=== PATIENT | male | born 1965 | race Hispanic/Latino ===

== ENCOUNTER 2020-12-22 11:08 | Emergency (ER) | payer MEDICARE ==
[2020-12-22] MEDS ORDERED: ZIPRASIDONE MESYLATE 20 MG VIAL IM ONE ×2 (11:10→11:38)
[2020-12-22] MEDS ORDERED: WATER FOR INJ Sterile (PF) 10 ML ONE (11:10)
[2020-12-22 11:43] VITALS: BP 117/65
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
== END 2020-12-22 13:57 | disposition home or self-care (01) ==
LOC: ED 11:08
DX: S00.531A Contusion of lip, initial encounter (principal); S09.90XA Unspecified injury of head, initial encounter; R41.82 Altered mental status, unspecified; Y08.89XA Assault by other specified means, initial encounter; Y93.89 Activity, other specified; Y92.098 Other place in other non-institutional residence as the place of occurrence of the external cause; Y99.8 Other external cause status
CPT/HCPCS: 70450; 96372; 99284; J3486

== ENCOUNTER 2022-02-22 10:15 | Emergency (ER) | payer MEDICARE ==
[2022-02-22 10:24] VITALS: BP 115/44
[2022-02-22 11:56] LABS: Basophils % (Auto) 0.2 % (0.0-1.8); Eosinophils # (Auto) 0.1 K/mm3 (0.0-0.4); Eosinophils % (Auto) 1.1 % (0.0-4.3); Hematocrit 39.1 % (35.5-45.6); Hemoglobin 12.9 gm/dl (11.8-15.2); Lymphocytes # (Auto) 0.8 K/mm3 (1.2-5.4); Lymphocytes % (Auto) 7.1 % (13.4-35.0); Mean Corpuscular HGB Conc 33 % (32-34); Mean Corpuscular Volume 82 fl (84-94); Monocytes # (Auto) 0.8 K/mm3 (0.0-0.8); Monocytes % (Auto) 7.1 % (0.0-7.3); Platelet Count 275 K/mm3 (140-440); Red Blood Count 4.75 M/mm3 (3.65-5.03); Red Cell Distribution Width 15.5 % (13.2-15.2)
== END 2022-02-22 17:43 | disposition left against medical advice (07) ==
LOC: ED 10:15
DX: M79.89 Other specified soft tissue disorders (principal); Z53.21 Procedure and treatment not carried out due to patient leaving prior to being seen by health care provider
CPT/HCPCS: 36415; 80053; 85025

== ENCOUNTER 2022-02-24 09:13 | Inpatient (IN) | payer MEDICARE ==
[2022-02-24 10:00] LABS: Basophils % (Auto) 0.4 % (0.0-1.8); Eosinophils # (Auto) 0.2 K/mm3 (0.0-0.4); Hematocrit 35.1 % (35.5-45.6); Hemoglobin 11.8 gm/dl (11.8-15.2); Lymphocytes # (Auto) 1.1 K/mm3 (1.2-5.4); Lymphocytes % (Auto) 11.7 % (13.4-35.0); Mean Corpuscular HGB Conc 34 % (32-34); Mean Corpuscular Volume 81 fl (84-94); Monocytes % (Auto) 11.3 % (0.0-7.3); Platelet Count 277 K/mm3 (140-440); Red Blood Count 4.34 M/mm3 (3.65-5.03); Red Cell Distribution Width 15.3 % (13.2-15.2)
[2022-02-24 10:01] LABS: BUN/Creatinine Ratio 16; Blood Urea Nitrogen 16 mg/dL (9-20); Calcium 8.7 mg/dL (8.4-10.2); Hemolysis Index 2
[2022-02-24 10:10] LABS: INR 0.88 (0.87-1.13)
[2022-02-24] MEDS ORDERED: ENOXAPARIN 100 MG/1 ML INJ SUB-Q ONE (10:43)
[2022-02-24] MEDS ORDERED: HYDROcodone/ACETAMINOPHEN 5-325 MG TAB PO ONE (10:44)
--- NOTE | 2022-02-24 10:44 | Emergency Department Report ---
HPI - General Chief Complaint: Extremity Injury, Lower Time Seen by Provider: 02/24/22 09:48 - HPI HPI: Room 24 The patient is a 56-year-old male present with a chief complaint of left leg pain and swelling. The patient has a history of cerebral palsy, bipolar disorder and schizophrenia and subsequently is not reliable historian. Family is present at bedside and states they received a call [facility] 02[facility]/2022 stating that the patient's left leg was swollen. When asked when the swelling began the patient states he does not know. Patient complains of pain in the leg and gives it a score of 8/10 ED Past Medical Hx - Past Medical History Previous Medical History?: Yes Hx Deep Vein Thrombosis: Yes (maryam legs) Hx Psychiatric Treatment: Yes (bipolar/schizophrenia) Additional medical history: Cerebral palsy - Surgical History Past Surgical History?: No - Family History Family history: no significant - Social History Smoking Status: Never Smoker Substance Use Type: None ED Review of Systems ROS: Stated complaint: SWOLLEN LEFT LEG Other details as noted in HPI Comment: Unobtainable due to pts medical conditions Physical Exam - Physical Exam Vital Signs: Vital Signs 02/24/22 09:18 Temperature 98.7 F Pulse Rate 104 H Respiratory 18 Rate Blood Pressure 145/85 [Right] O2 Sat by Pulse 96 Oximetry Physical Exam: GENERAL: The patient is well-nourished male lying on stretcher not appearing to be in acute distress HEENT: Normocephalic. Atraumatic. Extraocular motions are intact. Patient has moist mucous membranes. NECK: Supple. Trachea midline CHEST/LUNGS: Clear to auscultation. There is no respiratory distress noted. HEART/CARDIOVASCULAR: Regular. There is no tachycardia. There is no gallop rub or murmur. 2+ left DP ABDOMEN: Abdomen is soft, nontender. Patient has normal bowel sounds. There is no abdominal distention. SKIN: There is no rash. There is marked edema of the left lower extremity. There is no diaphoresis. NEURO: The patient is awake and alert. The patient is cooperative. The patient has no focal neurologic deficits. The patient has normal speech. GCS 15 MUSCULOSKELETAL: There is tenderness to palpation of the left lower extremity. ED Course Vital Signs 02/24/22 09:18 Temperature 98.7 F Pulse Rate 104 H Respiratory 18 Rate Blood Pressure 145/85 [Right] O2 Sat by Pulse 96 Oximetry ED Medical Decision Making - Lab Data Result diagrams: 02/24/22 09:26 02/24/22 09:26 - Radiology Data Radiology results: report reviewed (Left lower extremity Doppler), image reviewed (Left lower extremity Doppler) [facility] [address] [place] [address] Vascular Lab Report Signed Patient: DEE DEE CASTILLO MR#: [id number] : 1965 Acct:[id number] Age/Sex: 56 / M ADM Date: 02/24/22 Loc: ED Attending Dr: Ordering Physician: KIMBERLEY GRAY NP Date of Service: 02/24/22 Procedure(s): VL venous duplex LE LT Accession Number(s): [id number] cc: KIMBERLEY GRAY NP DUPLEX DOPPLER LOWER EXTREMITY VEINS, LEFT INDICATION: left leg swelling with hx of maryam DVT. TECHNIQUE: Duplex doppler imaging was performed through the veins of the left lower extremity using venous compression and other maneuvers. COMPARISON: No relevant prior imaging study available. FINDINGS: Left Common femoral vein: Occlusive thrombus. Left Superficial femoral vein: Occlusive thrombus. Left Popliteal vein: Occlusive thrombus. Left Calf veins: Occlusive thrombus. Additional findings: None.. IMPRESSION: 1. Extensive DVT throughout the left or extremity as above. The findings were given to the ER physician by the industrial relations manager immediately after the exam. Signer Name: Jed Ordaz MD Signed: 02/24/2022 11:10 AM Workstation Name: [id number] Transcribed By: Dictated By: Jed Ordaz MD Electronically Authenticated By: Jed Ordaz MD Signed Date/Time: 02/24/22 1110 DD/ 1109 TD/TT: - Differential Diagnosis DVT, lymphedema Critical care attestation.: If time is entered above; I have spent that time in minutes in the direct care of this critically ill patient, excluding procedure time. ED Disposition Clinical Impression: Acute deep vein thrombosis of left lower extremity Disposition: ADMITTED INPATIENT Is pt being admited?: Yes Does the pt Need Aspirin: No Condition: Fair Time of Disposition: 11:31 (Care transferred to hospitalist (Dr. Dash))
[2022-02-24] MEDS ORDERED: ONDANSETRON 4 MG/2 ML INJ IV PRN ×2 (11:10→19:45)
[2022-02-24] MEDS ORDERED: MORPHINE 2 MG/1 ML INJ IV PRN (11:10)
[2022-02-24] MEDS ORDERED: ACETAMINOPHEN 325 MG TAB PO PRN ×2 (11:10→19:45)
--- NOTE | 2022-02-24 11:15 | Vascular Lab Report ---
DUPLEX DOPPLER LOWER EXTREMITY VEINS, LEFT INDICATION: left leg swelling with hx of maryam DVT. TECHNIQUE: Duplex doppler imaging was performed through the veins of the left lower extremity using venous compr ession and other maneuvers. COMPARISON: No relevant prior imaging study available. FINDINGS: Left Common femoral vein: Occlusive thrombus. Left Superficial femoral vein: Occlusive thrombus. Left Popliteal vein: Occlusive thrombus. Left Calf veins: Occlusive thrombus. Additional findings: None.. IMPRESSION: 1. Extensive DVT throughout the left or extremity as above. The findings were given to the ER physici an by the loan analyst immediately after the exam. Signer Name: Jed Ordaz MD Signed: 02/24/2022 11:10 AM Workstation Name: [id number]
[2022-02-24 13:23] LABS: Partial Thromboplastin Time 33.5 Sec. (24.2-36.6)
[2022-02-24] MEDS ORDERED: METOCLOPRAMIDE 10 MG/2 ML INJ IV PRN (19:45)
[2022-02-24] MEDS ORDERED: SODIUM CHLORIDE 0.9% 1000 ML 1,000 ML IV SCH (19:45)
--- NOTE | 2022-02-24 19:45 | History and Physical Report ---
History of Present Illness Date of examination: 02/24/22 Date of admission: 02/24/22 11:10 Chief complaint: Left leg swelling and pain for 2 days History of present illness: The patient is a 56-year-old male present with a chief complaint of left leg pain and swelling. The patient has a history of cerebral palsy, bipolar disorder and schizophrenia and subsequently is not reliable historian. Family is present at bedside and states they received a call [facility]'s [facility] 02/21/2022 stating that the patient's left leg was swollen. When asked when the swelling began the patient states he does not know. Patient complains of pain in the leg and gives it a score of 8/10 - Past Medical History Previous Medical History?: Yes Hx Deep Vein Thrombosis: Yes (maryam legs) Hx Psychiatric Treatment: Yes (bipolar/schizophrenia) Additional medical history: Cerebral palsy - Surgical History Past Surgical History?: No - Family History Family history: no significant - Social History Smoking Status: Never Smoker Substance Use Type: None Review of Systems ROS: Stated complaint: SWOLLEN LEFT LEG Other details as noted in HPI Comment: Unobtainable due to pts medical conditions Medications and Allergies Allergies Allergy/AdvReac Type Severity Reaction Status Date / Time Penicillins Allergy Unknown Verified 02/22/22 10:24 Home Medications Medication Instructions Recorded Confirmed Last Taken Type levoFLOXacin [Levaquin] 750 mg PO QDAY #14 tablet 02/24/22 Unknown Rx Active Meds: Active Medications Acetaminophen (Acetaminophen 325 Mg Tab) 650 mg PO Q4H PRN PRN Reason: Pain MILD(1-3)/Fever >100.5/SMITH Morphine Sulfate (Morphine 2 Mg/1 Ml Inj) 2 mg IV Q4H PRN PRN Reason: Pain, Moderate (4-6) Ondansetron HCl (Ondansetron 4 Mg/2 Ml Inj) 4 mg IV Q8H PRN PRN Reason: Nausea And Vomiting Sodium Chloride (Sodium Chloride 0.9% 10 Ml Flush Syringe) 10 ml IV BID LUPE Sodium Chloride (Sodium Chloride 0.9% 10 Ml Flush Syringe) 10 ml IV PRN PRN PRN Reason: LINE FLUSH Exam - Constitutional Vitals: Temp Pulse Resp BP Pulse Ox 60 F L 77 18 129/65 99 02/24/22 11:30 02/24/22 17:05 02/24/22 17:05 02/24/22 17:05 02/24/22 17:05 General appearance: Present: no acute distress, well-nourished - EENT Eyes: Present: PERRL ENT: hearing intact, clear oral mucosa - Neck Neck: Present: supple, normal ROM - Respiratory Respiratory effort: normal Respiratory: bilateral: CTA - Cardiovascular Heart rate: 78 Rhythm: regular Heart Sounds: Present: S1 & S2. Absent: rub, click - Extremities Extremities: pulses symmetrical, No edema Extremity abnormal: edema (Left lower extremity), erythema (Left lower extremity erythema below knee joint up to the ankle) Peripheral Pulses: within normal limits - Abdominal General gastrointestinal: Present: soft, non-tender, non-distended, normal bowel sounds Male genitourinary: Present: normal - Integumentary Integumentary: Present: clear, warm, dry - Musculoskeletal Musculoskeletal: gait normal, strength equal bilaterally - Psychiatric Psychiatric: appropriate mood/affect, intact judgment & insight - Neurologic Neurologic: CNII-XII intact, moves all extremities Results - Labs CBC & Chem 7: 02/25/22 04:46 02/25/22 04:46 Labs: Laboratory Last Values WBC 9.2 K/mm3 (4.5-11.0) 02/24/22 09: RBC 4.34 M/mm3 (3.65-5.03) 02/24/22 09: Hgb 11.8 gm/dl (11.8-15.2) 02/24/22 09: Hct 35.1 % (35.5-45.6) L 02/24/22 09: MCV 81 fl (84-94) L 02/24/22 09:26 MCH 27 pg (28-32) L 02/24/22 09:26 MCHC 34 % (32-34) 02/24/22 09: RDW 15.3 % (13.2-15.2) H 02/24/22 09:26 Plt Count 277 K/mm3 (140-440) 02/24/22 09:26 Lymph % (Auto) 11.7 % (13.4-35.0) L 02/24/22 09: [place] % (Auto) 11.3 % (0.0-7.3) H 02/24/22 09: Eos % (Auto) 2.0 % (0.0-4.3) 02/24/22 09: Baso % (Auto) 0.4 % (0.0-1.8) 02/24/22 09: Lymph # (Auto) 1.1 K/mm3 (1.2-5.4) L 02/24/22 09:26 [place] # (Auto) 1.0 K/mm3 (0.0-0.8) H 02/24/22 09:26 Eos # (Auto) 0.2 K/mm3 (0.0-0.4) 02/24/22 09: Baso # (Auto) 0.0 K/mm3 (0.0-0.1) 02/24/22 09: Seg Neutrophils % 74.6 % (40.0-70.0) H 02/24/22 09: Seg Neutrophils # 6.9 K/mm3 (1.8-7.7) 02/24/22 09: PT 13.1 Sec. (12.2-14.9) 02/24/22 09: INR 0.88 (0.87-1.13) 02/24/22 09: APTT 33.5 Sec. (24.2-36.6) 02/24/22 09:26 Sodium 138 mmol/L (137-145) 02/24/22 09: Potassium 3.9 mmol/L (3.6-5.0) 02/24/22 09: Chloride 100.8 mmol/L (98-107) 02/24/22 09: Carbon Dioxide 24 mmol/L (22-30) 02/24/22 09: Anion Gap 17 mmol/L 02/24/22 09:26 BUN 16 mg/dL (9-20) 02/24/22 09: Creatinine 1.0 mg/dL (0.8-1.3) 02/24/22 09: Estimated GFR > 60 ml/min 02/24/22 09: BUN/Creatinine Ratio 16 % 02/24/22 09:26 Glucose 131 mg/dL (75-100) H 02/24/22 09: Calcium 8.7 mg/dL (8.4-10.2) 02/24/22 09:26 - Imaging and Cardiology Imaging and Cardiology: Duplex scan left lower extremity Extensive DVT throughout the left lower extremity. Left common femoral vein occlusive thrombus Left superficial femoral vein occlusive thrombus Left popliteal vein occlusive thrombus Left calf by occlusive thrombus Assessment and Plan Advance Directives: Yes (Full code) VTE prophylaxis?: Chemical Plan of care discussed with patient/family: Yes - Patient Problems (1) Acute deep vein thrombosis of left lower extremity Current Visit: Yes Status: Acute Qualifiers: Affected thrombotic vein of extremity: femoral Qualified Code(s): I82.412 - Acute embolism and thrombosis of left femoral vein Plan to address problem: Extensive DVT of left lower extremity Patient initiated on SQ Lovenox 100 mg every 12 Will switch to Eliquis tomorrow or day after Vascular surgery/IR consult requested (2) Left leg cellulitis Current Visit: Yes Status: Acute Plan to address problem: IV antibiotic in the form of Levaquin and vancomycin Patient is allergic to penicillin (3) Cerebral palsy Current Visit: Yes Status: Chronic Plan to address problem: Mild to moderate Supportive care (4) Bipolar disorder Current Visit: Yes Status: Chronic Qualifiers: Active/Remission status: in full remission Plan to address problem: Continue antipsychotics (5) DVT prophylaxis Current Visit: Yes Status: Acute Plan to address problem: Patient on Lovenox SQ every 12 and GI prophylaxis (6) Advance care planning Current Visit: Yes Status: Acute Plan to address problem: Disease education conducted, care plan discussed, diagnosis and prognosis discussed. Patient is full code. Patient acknowledged understanding with the c are plan. +30 minutes.
[2022-02-24] MEDS ORDERED: VANCOMYCIN PHARMACY TO DOSE IV SCH (20:00)
[2022-02-24] MEDS ORDERED: AMPICILLIN/SULBACTA 3GM/100ML 3 GM/100 ML BAG IV SCH (20:00)
[2022-02-24] MEDS: oxyCODONE /ACETAMINOPHEN 5-325MG TAB PO PRN (20:50)
[2022-02-24] MEDS ORDERED: VANCOMYCIN 2,000 MG in SODIUM CHLORIDE 0.9% 500 ML 500 ML IV ONE (22:00)
[2022-02-24] MEDS: ENOXAPARIN 100 MG/1 ML INJ SUB-Q SCH (23:01)
[2022-02-24] MEDS: FAMOTIDINE 20 MG TAB PO SCH (23:01)
[2022-02-25 05:18] LABS: Basophils % (Auto) 0.4 % (0.0-1.8); Eosinophils # (Auto) 0.3 K/mm3 (0.0-0.4); Eosinophils % (Auto) 4.4 % (0.0-4.3); Hemoglobin 10.5 gm/dl (11.8-15.2); Lymphocytes # (Auto) 1.2 K/mm3 (1.2-5.4); Lymphocytes % (Auto) 18.9 % (13.4-35.0); Mean Corpuscular HGB Conc 33 % (32-34); Mean Corpuscular Volume 82 fl (84-94); Monocytes # (Auto) 0.7 K/mm3 (0.0-0.8); Monocytes % (Auto) 11.5 % (0.0-7.3); Platelet Count 244 K/mm3 (140-440); Red Cell Distribution Width 15.4 % (13.2-15.2)
[2022-02-25 05:41] LABS: Alanine Aminotransferase 17 units/L (7-56); Albumin 3.2 g/dL (3.9-5); BUN/Creatinine Ratio 18; Blood Urea Nitrogen 14 mg/dL (9-20); Calcium 8.3 mg/dL (8.4-10.2); Hemolysis Index 0
[2022-02-25] MEDS: FAMOTIDINE 20 MG TAB PO SCH (09:18)
[2022-02-25] MEDS: ENOXAPARIN 100 MG/1 ML INJ SUB-Q SCH (09:18)
[2022-02-25] MEDS: VANCOMYCIN 1,500 MG in SODIUM CHLORIDE 0.9% 500 ML 500 ML IV SCH (12:49)
--- NOTE | 2022-02-25 16:30 | Consultation ---
History of Present Illness - Reason for Consult Consult date: 02/25/22 LLE DVT Requesting physician: JORGE BELL - History of Present Illness 56-year-old male present with a chief complaint of left leg pain and swelling. The patient has a history of cerebral palsy, bipolar disorder and schizophrenia and subsequently is not reliable historian. The patient developed swelling on 02/21/2022 stating that the patient's left leg was swollen. When asked when the swelling began the patient states he does not know. Patient complains of pain in the leg and gives it a score of 8/10 Discussed situation with patient. Patient has 3-4+ edema of the left lower extremity and this is with elevated positioning. His right lower extremity has no edema. He has palpable pedal pulses bilaterally. Patient is a poor historian. Contacted patient's mother and I discussed situation with her. Previous Medical History Hx Deep Vein Thrombosis: Yes (maryam legs) Hx Psychiatric Treatment: Yes (bipolar/schizophrenia) Additional medical history: Cerebral palsy Surgical History Past Surgical History?: No Family History Family history: no significant Social History Smoking Status: Never Smoker Substance Use Type: None Medications and Allergies Allergies Allergy/AdvReac Type Severity Reaction Status Date / Time Penicillins Allergy Unknown Verified 02/22/22 10:24 Home Medications Medication Instructions Recorded Confirmed Last Taken Type levoFLOXacin [Levaquin] 750 mg PO QDAY #14 tablet 02/24/22 Unknown Rx Divalproex ER [DepaKOTE ER] 250 mg PO QHS 02/25/22 02/25/22 Unknown History Trazodone HCl 150 mg PO QHS 02/25/22 02/25/22 Unknown History risperiDONE [RisperDAL] 3 mg PO BID 02/25/22 02/25/22 Unknown History Active Meds: Active Medications Acetaminophen (Acetaminophen 325 Mg Tab) 650 mg PO Q4H PRN PRN Reason: Pain MILD(1-3)/Fever >100.5/SMITH Enoxaparin Sodium (Enoxaparin 100 Mg/1 Ml Inj) 100 mg SUB-Q Q12HR LUPE; Protocol Last Admin: 02/25/22 09:18 Dose: 100 mg Famotidine (Famotidine 20 Mg Tab) 20 mg PO BID LUPE Last Admin: 02/25/22 09:18 Dose: 20 mg Sodium Chloride (Nacl 0.9% 1000 Ml) 1,000 mls @ 75 mls/hr IV DIRECT [facility] Last Admin: 02/24/22 20:34 Dose: 75 mls/hr Vancomycin HCl 1,500 mg/ (Sodium Chloride) 530 mls @ 333.333 mls/hr IV Q12H [facility] Last Admin: 02/25/22 12:49 Dose: 333.333 mls/hr Levofloxacin/Dextrose (Levaquin 750mg/150ml) 750 mg in 150 mls @ 100 mls/hr IV Q24H [facility] Last Admin: 02/24/22 20:35 Dose: 100 mls/hr Metoclopramide HCl (Metoclopramide 10 Mg/2 Ml Inj) 10 mg IV Q6H PRN PRN Reason: Nausea And Vomiting Morphine Sulfate (Morphine 2 Mg/1 Ml Inj) 2 mg IV Q4H PRN PRN Reason: Pain, Moderate (4-6) Ondansetron HCl (Ondansetron 4 Mg/2 Ml Inj) 4 mg IV Q8H PRN PRN Reason: Nausea And Vomiting Oxycodone/Acetaminophen (Oxycodone /Acetaminophen 5-325mg Tab) 1 tab PO Q6H PRN PRN Reason: Pain, Moderate (4-6) Last Admin: 02/24/22 20:50 Dose: 1 tab Sodium Chloride (Sodium Chloride 0.9% 10 Ml Flush Syringe) 10 ml IV BID [facility] Last Admin: 02/25/22 09:18 Dose: 10 ml Sodium Chloride (Sodium Chloride 0.9% 10 Ml Flush Syringe) 10 ml IV PRN PRN PRN Reason: LINE FLUSH Review of Systems ROS unobtainable: due to mental status Exam - Constitutional Vitals: Temp Pulse Resp BP Pulse Ox 97.5 F L 92 H 18 141/77 98 02/24/22 19:57 02/24/22 19:57 02/24/22 19:57 02/24/22 19:57 02/25/22 10:35 General appearance: Present: mild distress (Left leg discomfort) - EENT Eyes: Present: EOM intact ENT: hearing intact - Neck Neck: Present: supple - Respiratory Respiratory effort: normal - Cardiovascular Rhythm: regular - Extremities Extremities: pulses intact, normal temperature, normal color Extremity abnormal: edema (3-4+ left lower extremity) - Abdominal General gastrointestinal: Present: soft, non-tender - Psychiatric Psychiatric: appropriate mood/affect, cooperative Results - Labs CBC & Chem 7: 02/25/22 04:46 02/25/22 04:46 Labs: Abnormal lab results 02/25/22 02/25/22 Range/Units 04:46 04:46 Hgb 10.5 L (11.8-15.2) gm/dl Hct 32.0 L (35.5-45.6) % MCV 82 L (84-94) fl MCH 27 L (28-32) pg RDW 15.4 H (13.2-15.2) % [place] % (Auto) 11.5 H (0.0-7.3) % Eos % (Auto) 4.4 H (0.0-4.3) % Calcium 8.3 L (8.4-10.2) mg/dL Total Protein 5.7 L (6.3-8.2) g/dL Albumin 3.2 L (3.9-5) g/dL - Imaging and Cardiology Venous US: report reviewed, image reviewed Assessment and Plan 56-year-old male with cerebral palsy, schizophrenia, and bipolar disorder who presents with extensive left lower extremity DVT. Discussed situation with mother. 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 Explained that treatment would involve placement of an IVC filter and subsequent Clottriever thrombectomy of the left lower extremity with angioplasty and possible stenting. I had a long discussion with the mother who seems to be unsure what the right decision for her son would be. Complicated decision-making as the patient provides little input. Patient's mother asked me to contact her again in 30 minutes. After 30 minutes, she discussed with family that she thought her son would benefit from oral anticoagulation alone. The reason why was he previously had psychiatric exacerbations in the hospital. Recommend Eliquis 10 mg p.o. twice daily x7 days then Eliquis 5 mg p.o. twice daily afterwards. If Eliquis not on patient's pharmacy plan, then Xarelto can be used.
[2022-02-25] MEDS: oxyCODONE /ACETAMINOPHEN 5-325MG TAB PO PRN (17:03)
--- NOTE | 2022-02-25 17:30 | Discharge Summary ---
Providers - Providers Date of Admission: 02/24/22 11:10 Date of discharge: 02/26/22 Attending physician: JORGE BELL 02/24/22 19:56 Consult to Physician [CONS] Routine Comment: Consulting Provider: DEE DEE BELL Physician Instructions: Reason For Exam: DVT Primary care physician: MARAL RODRIGUEZ Hospitalization Condition: Fair Hospital course: Subjective Date of service: 02/25/22 Principal diagnosis: Left lower extremity DVT and cellulitis Interval history: Patient admitted for left lower extremity DVT and cellulitis Patient doing well on Lovenox subcu 100 mg every 12 and IV antibiotics in the form of Levaquin vascular surgery/IR consulted for removal of the clot Mother refused removal floor in spite of the complications associated with extensive clot 02/25/2022 correction is accepted the patient Patient being discharged on Eliquis 10 mg twice a day for 7 days followed by Eliquis 5 mg twice a day for 30 days with refills Patient also being discharged on Levaquin for mild to moderate cellulitis of the left lower extremity. Case management arrange for transportation. Assessment and Plan - Patient Problems (1) Acute deep vein thrombosis of left lower extremity Current Visit: Yes Status: Acute Qualifiers: Affected thrombotic vein of extremity: femoral Qualified Code(s): I82.412 - Acute embolism and thrombosis of left femoral vein Plan to address problem: Extensive DVT of left lower extremity Patient initiated on SQ Lovenox 100 mg every 12 Will switch to Eliquis tomorrow or day after Vascular surgery/IR consult requested per interventional radiology 56-year-old male with cerebral palsy, schizophrenia, and bipolar disorder who presents with extensive left lower extremity DVT. Discussed situation with mother. 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 Explained that treatment would involve placement of an IVC filter and subsequent Clottriever thrombectomy of the left lower extremity with angioplasty and possible stenting. I had a long discussion with the mother who seems to be unsure what the right decision for her son would be. Complicated decision-making as the patient provides little input. Patient's mother asked me to contact her again in 30 minutes. After 30 minutes, she discussed with family that she thought her son would benefit from oral anticoagulation alone. The reason why was he previously had psychiatric exacerbations in the hospital. Recommend Eliquis 10 mg p.o. twice daily x7 days then Eliquis 5 mg p.o. twice daily afterwards. If Eliquis not on patient's pharmacy plan, then Xarelto can be used. (2) Left leg cellulitis Current Visit: Yes Status: Acute Plan to address problem: IV antibiotic in the form of Levaquin and vancomycin Patient is allergic to penicillin (3) Cerebral palsy Current Visit: Yes Status: Chronic Plan to address problem: Mild to moderate Supportive care (4) Bipolar disorder Current Visit: Yes Status: Chronic Qualifiers: Active/Remission status: in full remission Plan to address problem: Continue antipsychotics (5) DVT prophylaxis Current Visit: Yes Status: Acute Plan to address problem: Patient on Lovenox SQ every 12 and GI prophylaxis (6) Advance care planning Current Visit: Yes Status: Acute Plan to address problem: Disease education conducted, care plan discussed, diagnosis and prognosis discussed. Patient is full code. Patient acknowledged understanding with the care plan. +30 minutes. Disposition: HOME / SELF CARE / HOMELESS Final Discharge Diagnosis (Prints w/discharge instructions): Left lower extremity DVT. Cellulitis of the left lower extremity. Cerebral palsy Time spent for discharge: 35 minutes - Discharge Diagnoses (1) Acute deep vein thrombosis of left lower extremity Status: Acute Qualifiers: Affected thrombotic vein of extremity: femoral Qualified Code(s): I82.412 - Acute embolism and thrombosis of left femoral vein (2) Left leg cellulitis Status: Acute (3) Cerebral palsy Status: Chronic (4) Bipolar disorder Status: Chronic Qualifiers: Active/Remission status: in full remission (5) DVT prophylaxis Status: Acute (6) Advance care planning Status: Acute Core Measure Documentation - Palliative Care Palliative Care/ Comfort Measures: Not Applicable - Core Measures Any of the following diagnoses?: none Exam - Constitutional Vitals: Temp Pulse Resp BP Pulse Ox 97.5 F L 92 H 18 141/77 98 02/24/22 19:57 02/24/22 19:57 02/24/22 19:57 02/24/22 19:57 02/25/22 10:35 General appearance: Present: no acute distress, well-nourished - EENT Eyes: Present: PERRL ENT: hearing intact, clear oral mucosa - Neck Neck: Present: supple, normal ROM - Respiratory Respiratory effort: normal Respiratory: bilateral: CTA - Cardiovascular Heart rate: 78 Rhythm: regular Heart Sounds: Present: S1 & S2. Absent: rub, click - Extremities Extremities: pulses symmetrical, No edema Peripheral Pulses: within normal limits - Abdominal General gastrointestinal: Present: soft, non-tender, non-distended, normal bowel sounds Male genitourinary: Present: normal - Integumentary Integumentary: Present: clear, warm, dry - Musculoskeletal Musculoskeletal: gait normal, strength equal bilaterally - Psychiatric Psychiatric: appropriate mood/affect, intact judgment & insight - Neurologic Neurologic: CNII-XII intact, moves all extremities Plan Follow up with: MARAL RODRIGUEZ MD [Primary Care Provider] - 7 Days DEE DEE LUIS MD [Staff Physician] - 7 Days Prescriptions: levoFLOXacin [Levaquin] 750 mg PO QDAY #14 tablet
--- NOTE | 2022-02-25 19:57 | Progress Note ---
Assessment and Plan - Patient Problems (1) Acute deep vein thrombosis of left lower extremity Current Visit: Yes Status: Acute Qualifiers: Affected thrombotic vein of extremity: femoral Qualified Code(s): I82.412 - Acute embolism and thrombosis of left femoral vein Plan to address problem: Extensive DVT of left lower extremity Patient initiated on SQ Lovenox 100 mg every 12 Will switch to Eliquis tomorrow or day after Vascular surgery/IR consult requested per interventional radiology 56-year-old male with cerebral palsy, schizophrenia, and bipolar disorder who presents with extensive left lower extremity DVT. Discussed situation with mother. 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 Explained that treatment would involve placement of an IVC filter and subsequent Clottriever thrombectomy of the left lower extremity with angioplasty and possible stenting. I had a long discussion with the mother who seems to be unsure what the right decision for her son would be. Complicated decision-making as the patient provides little input. Patient's mother asked me to contact her again in 30 minutes. After 30 minutes, she discussed with family that she thought her son would benefit from oral ant icoagulation alone. The reason why was he previously had psychiatric exacerbations in the hospital. Recommend Eliquis 10 mg p.o. twice daily x7 days then Eliquis 5 mg p.o. twice daily afterwards. If Eliquis not on patient's pharmacy plan, then Xarelto can be used. (2) Left leg cellulitis Current Visit: Yes Status: Acute Plan to address problem: IV antibiotic in the form of Levaquin and vancomycin Patient is allergic to penicillin (3) Cerebral palsy Current Visit: Yes Status: Chronic Plan to address problem: Mild to moderate Supportive care (4) Bipolar disorder Current Visit: Yes Status: Chronic Qualifiers: Active/Remission status: in full remission Plan to address problem: Continue antipsychotics (5) DVT prophylaxis Current Visit: Yes Status: Acute Plan to address problem: Patient on Lovenox SQ every 12 and GI prophylaxis (6) Advance care planning Current Visit: Yes Status: Acute Plan to address problem: Disease education conducted, care plan discussed, diagnosis and prognosis discussed. Patient is full code. Patient acknowledged understanding with the care plan. +30 minutes. Subjective Date of service: 02/24/22 Principal diagnosis: Left lower extremity DVT and cellulitis Interval history: Patient admitted for left lower extremity DVT and cellulitis Patient doing well on Lovenox subcu 100 mg every 12 and IV antibiotics in the form of Levaquin vascular surgery/IR consulted for removal of the clot Mother refused removal floor in spite of the complications associated with extensive clot Objective - Constitutional Vitals: Vital Signs - 12hr 02/25/22 02/25/22 10:35 18:14 Temperature 99.1 F Pulse Rate 89 Respiratory 18 Rate Blood Pressure 133/66 O2 Sat by Pulse 98 94 Oximetry General appearance: Present: no acute distress, well-nourished - EENT Eyes: PERRL, EOM intact ENT: hearing intact, clear oral mucosa Ears: bilateral: normal - Neck Neck: supple, normal ROM - Respiratory Respiratory effort: normal Respiratory: bilateral: CTA - Breasts Breasts: normal - Cardiovascular Heart rate: 78 Rhythm: regular Heart Sounds: Present: S1 & S2. Absent: gallop, rub Extremities: pulses intact, Full ROM Extremity abnormal: edema, erythema, tenderness, other (Left lower extremity swollen from the thigh to the ankle, erythema present on the left lower extremity below knee) - Gastrointestinal General gastrointestinal: Present: soft, non-tender, non-distended, normal bowel sounds - Genitourinary Male genitourinary: normal - Integumentary Integumentary: clear, warm, dry - Musculoskeletal Musculoskeletal: 1, strength equal bilaterally - Neurologic Neurologic: moves all extremities - Psychiatric Psychiatric: memory intact, appropriate mood/affect, intact judgment & insight - Labs CBC & Chem 7: 02/25/22 04:46 02/25/22 04:46 Labs: Abnormal lab results 02/25/22 02/25/22 Range/Units 04:46 04:46 Hgb 10.5 L (11.8-15.2) gm/dl Hct 32.0 L (35.5-45.6) % MCV 82 L (84-94) fl MCH 27 L (28-32) pg RDW 15.4 H (13.2-15.2) % [place] % (Auto) 11.5 H (0.0-7.3) % Eos % (Auto) 4.4 H (0.0-4.3) % Calcium 8.3 L (8.4-10.2) mg/dL Total Protein 5.7 L (6.3-8.2) g/dL Albumin 3.2 L (3.9-5) g/dL
[2022-02-26] MEDS: VANCOMYCIN 1,500 MG in SODIUM CHLORIDE 0.9% 500 ML 500 ML IV SCH ×2 (00:30→12:41)
[2022-02-26] MEDS: ENOXAPARIN 100 MG/1 ML INJ SUB-Q SCH ×2 (00:30→12:40)
[2022-02-26] MEDS: FAMOTIDINE 20 MG TAB PO SCH ×2 (00:31→12:40)
[2022-02-26 16:10] VITALS: BP 104/57
== END 2022-02-26 20:11 | disposition home or self-care (01) | DRG 300 ==
LOC: ED 09:13 → 3A 11:10
PROVIDERS: ADMIT Internal Medicine; ATTEND Student in an Organized Health Care Education/Training Program
DX: I82.412 Acute embolism and thrombosis of left femoral vein (principal); L03.116 Cellulitis of left lower limb; F31.9 Bipolar disorder, unspecified; G80.9 Cerebral palsy, unspecified; F20.9 Schizophrenia, unspecified; Z88.0 Allergy status to penicillin
CPT/HCPCS: 36415; 80048; 80053; 85025; 85610; 85730; 96372; 99285; G0378; J1650; J1956; J3370; J7030; J7040

== ENCOUNTER → 2022-03-01 | Emergency (ER) | payer MEDICARE ==
[~2022-03-01] MED LIST: ACETAMINOPHEN 325 MG TAB PO PRN; ALBUTEROL 2.5 MG/3 ML NEBU IH PRN; DIVALPROEX ER 250 MG TAB PO SCH; HEPARIN BOLUS 10,000 UNIT/10 ML VIAL IV ONE; HEPARIN/ 0.45% NACL DRIP 25,000 UNIT/250 ML BAG IV SCH; HYDROmorphone 0.5 MG/0.5 ML INJ IV PRN; NON-FORMULARY EACH (Trazodone Hcl [Trazodone Hcl] 150 MG Tablet) PO SCH; ONDANSETRON 4 MG/2 ML INJ IV PRN; WATER FOR INJ Sterile (PF) 10 ML ONE; ZIPRASIDONE MESYLATE 20 MG VIAL IM ONE; diphenhydrAMINE 50 MG/ML VIAL IM ONE; oxyCODONE /ACETAMINOPHEN 5-325MG TAB PO PRN; risperiDONE 3 MG TAB PO SCH; traZODone 50 MG TAB PO SCH
[2022-03-01 16:20] VITALS: BP 130/70
[2022-03-01 18:24] LABS: Basophils % (Auto) 0.3 % (0.0-1.8); Eosinophils # (Auto) 0.3 K/mm3 (0.0-0.4); Eosinophils % (Auto) 3.1 % (0.0-4.3); Hematocrit 35.9 % (35.5-45.6); Hemoglobin 11.7 gm/dl (11.8-15.2); Lymphocytes # (Auto) 1.1 K/mm3 (1.2-5.4); Lymphocytes % (Auto) 11.5 % (13.4-35.0); Mean Corpuscular HGB Conc 33 % (32-34); Mean Corpuscular Volume 82 fl (84-94); Monocytes # (Auto) 0.9 K/mm3 (0.0-0.8); Monocytes % (Auto) 9.5 % (0.0-7.3); Platelet Count 334 K/mm3 (140-440); Red Cell Distribution Width 15.4 % (13.2-15.2)
[2022-03-01 18:33] LABS: INR 1.17 (0.87-1.13)
[2022-03-01 18:34] LABS: Partial Thromboplastin Time 36.4 Sec. (24.2-36.6)
[2022-03-01 18:40] LABS: BUN/Creatinine Ratio 22; Blood Urea Nitrogen 20 mg/dL (9-20); Calcium 8.8 mg/dL (8.4-10.2); Hemolysis Index 8
--- NOTE | 2022-03-01 19:31 | Emergency Department Report ---
ED Extremity Problem HPI - General Chief complaint: Extremity Injury, Lower Stated complaint: LT LEG SWOLLEN/ GENITAL PAIN Time Seen by Provider: 03/01/22 16:41 Source: EMS, old records reviewed Mode of arrival: Stretcher Limitations: Other - History of Present Illness Initial comments: 57-year-old male with a history of schizophrenia, bipolar disorder, cerebral palsy presents to the hospital complaints of persistent left leg pain and swelling. Patient was recently admitted here February 24 until the and diagnosed with left leg cellulitis and extensive left leg DVT from the left common femoral down to the calf. Patient is a poor historian due to his underlying psychiatric and mental disorders. Patient constantly yelling requesting a room, food, and complaining of leg pain. As per previous medical record review patient was seen by vascular surgery and acute thrombectomy with possible stenting and Suzette filter was recommended. Mother declined intervention at this time prefer to attempt anticoagulation. Patient was discharged on Eliquis and Levaquin. Severity scale (0 -10): 5 - Related Data Home Medications Medication Instructions Recorded Confirmed Last Taken Divalproex ER [DepaKOTE ER] 250 mg PO QHS 02/25/22 02/25/22 Unknown Trazodone HCl 150 mg PO QHS 02/25/22 02/25/22 Unknown risperiDONE [RisperDAL] 3 mg PO BID 02/25/22 02/25/22 Unknown Previous Rx's Medication Instructions Recorded Last Taken Type levoFLOXacin [Levaquin] 750 mg PO QDAY #14 tablet 02/24/22 Unknown Rx Allergies Allergy/AdvReac Type Severity Reaction Status Date / Time Penicillins Allergy Unknown Verified 03/01/22 16:20 ED Review of Systems ROS: Stated complaint: LT LEG SWOLLEN/ GENITAL PAIN Other details as noted in HPI Comment: All other systems reviewed and negative ED Past Medical Hx - Past Medical History Previous Medical History?: Yes Hx Deep Vein Thrombosis: Yes Hx Psychiatric Treatment: Yes (bipolar/schizophrenia) Additional medical history: Cerebral palsy - Social History Smoking Status: Never Smoker Substance Use Type: None - Medications Home Medications: Home Medications Medication Instructions Recorded Confirmed Last Taken Type levoFLOXacin [Levaquin] 750 mg PO QDAY #14 tablet 02/24/22 Unknown Rx Divalproex ER [DepaKOTE ER] 250 mg PO QHS 02/25/22 02/25/22 Unknown History Trazodone HCl 150 mg PO QHS 02/25/22 02/25/22 Unknown History risperiDONE [RisperDAL] 3 mg PO BID 02/25/22 02/25/22 Unknown History ED Physical Exam - General Limitations: Physical Limitation - Other Other exam information: General: No acute distress Head: Atraumatic Eyes: normal appearance ENT: Moist mucous membranes Neck: Normal appearance, no midline tenderness Chest: Clear to auscultation bilaterally CV: Regular rate and rhythm Abdomen: Soft, normal bowel sounds, nontender, nondistended, no rebound or guarding Back: Normal inspection Extremity: Severe left leg edema, erythema, and warmth. Pain with movement Neuro: Alert O x 3, no facial asymmetry, speech clear, no gross motor sensory deficit Psych: Appropriate behavior Skin: No rash ED Course Vital Signs 03/01/22 16:18 Temperature 98.0 F Pulse Rate 95 H Respiratory 16 Rate Blood Pressure 130/70 [Left] O2 Sat by Pulse 96 Oximetry - Consultations Consultation #1: 03/01/22 18:[address] Osmar Hunter who is agreeable to consulting outpatient for intervention for extensive left leg DVT ED Medical Decision Making - Lab Data Result diagrams: 03/01/22 17:59 03/01/22 17:59 Lab Results 03/01/22 03/01/22 03/01/22 Range/Units 17:59 17:59 17:59 WBC 9.4 (4.5-11.0) K/mm3 RBC 4.40 (3.65-5.03) M/mm3 Hgb 11.7 L (11.8-15.2) gm/dl Hct 35.9 (35.5-45.6) % MCV 82 L (84-94) fl MCH 27 L (28-32) pg MCHC 33 (32-34) % RDW 15.4 H (13.2-15.2) % Plt Count 334 (140-440) K/mm3 Lymph % (Auto) 11.5 L (13.4-35.0) % [place] % (Auto) 9.5 H (0.0-7.3) % Eos % (Auto) 3.1 (0.0-4.3) % Baso % (Auto) 0.3 (0.0-1.8) % Lymph # (Auto) 1.1 L (1.2-5.4) K/mm3 [place] # (Auto) 0.9 H (0.0-0.8) K/mm3 Eos # (Auto) 0.3 (0.0-0.4) K/mm3 Baso # (Auto) 0.0 (0.0-0.1) K/mm3 Seg Neutrophils % 75.6 H (40.0-70.0) % Seg Neutrophils # 7.1 (1.8-7.7) K/mm3 PT 16.6 H (12.2-14.9) Sec. INR 1.17 H (0.87-1.13) APTT 36.4 (24.2-36.6) Sec. Sodium 138 (137-145) mmol/L Potassium 4.5 (3.6-5.0) mmol/L Chloride 103.1 (98-107) mmol/L Carbon Dioxide 23 (22-30) mmol/L Anion Gap 16 mmol/L BUN 20 (9-20) mg/dL Creatinine 0.9 (0.8-1.3) mg/dL Estimated GFR > 60 ml/min BUN/Creatinine Ratio 22 % Glucose 99 (75-100) mg/dL Calcium 8.8 (8.4-10.2) mg/dL - Medical Decision Making 57-year-old male presents to the hospital with persistent left leg pain, swelling, and warmth. Patient has a known extensive left leg DVT from previous visit with recent refusal for intervention. I rediscussed case with patient's mother who states that she will consent to vascular intervention this time a round since he has not improved with oral anticoagulation. IV Levaquin also ordered for cellulitis. case discussed with Dr. Hunter who recommends heparin drip and he will consult on the patient Patient did require IM sedation with Geodon 10 mg and Benadryl 50 mg due to persistent agitation Critical Care Time: No Critical care attestation.: If time is entered above; I have spent that time in minutes in the direct care of this critically ill patient, excluding procedure time. ED Disposition Clinical Impression: Acute deep vein thrombosis of left lower extremity, Bipolar disorder, Cerebral palsy, Left leg cellulitis Disposition: 01 HOME / SELF CARE / HOMELESS Is pt being admited?: No Does the pt Need Aspirin: No Condition: Stable Time of Disposition: 19:31 (DR Severino/hospitalist)
--- NOTE | 2022-03-01 19:37 | History and Physical Report ---
History of Present Illness Chief complaint: His leg hurts History of present illness: 57 YO Male with Bipolar Disorder, Schizophrenia, PVD, CP, BLE DVT but patient caregiver refused intervention during prior admission presents to ED for evaluation. Patient has diminished cognition anxiety provide history. Patient history provided by his mother who is at bedside during exam and interview. As per mother patient has experienced left leg pain and swelling over the past 2 days. EMS was notified and upon arrival the patient was found to be in distress and subsequent transported to [facility] for further care and evaluation of the aforementioned symptoms. The patient was seen and evaluated emergency department. Lab and imaging studies reviewed. Patient underwent Doppler exam and found to have extensive left lower extremity DVT as well as left lower extremity cellulitis. Patient admitted to medical floor due to increased risk of worsening symptoms. Vascular surgery service consulted. Patient has diminished cognition but has a positive gag reflex and is able protect his airway without difficulty. Patient multiple does not report fever, chills, chest pain, palpitation, adductive cough, skin rash and recent contact, known exposure to COVID-19. Prior mission on 02/24/2022 reviewed. All medication listed at time of admission has been reconciled. Advanced care planning conducted in ED. Patient mother acknowledges that she will consent for surgical intervention as per vascular surgery team recommendations. Past History Past Medical History: DVT, PVD, other (See HPI) Past Surgical History: No surgical history, Other (Reviewed) Social history: single, lives with family Family history: hypertension Medications and Allergies Allergies Allergy/AdvReac Type Severity Reaction Status Date / Time Penicillins Allergy Unknown Verified 03/01/22 16:20 Home Medications Medication Instructions Recorded Confirmed Last Taken Type levoFLOXacin [Levaquin] 750 mg PO QDAY #14 tablet 02/24/22 Unknown Rx Divalproex ER [DepaKOTE ER] 250 mg PO QHS 02/25/22 02/25/22 Unknown History Trazodone HCl 150 mg PO QHS 02/25/22 02/25/22 Unknown History risperiDONE [RisperDAL] 3 mg PO BID 02/25/22 02/25/22 Unknown History Active Meds: Active Medications Levofloxacin/Dextrose (Levaquin 750mg/150ml) 750 mg in 150 mls @ 100 mls/hr IV ONCE ONE; Protocol Stop: 03/01/22 20:56 Heparin Sodium/Sodium Chloride (Heparin/ 0.45% Nacl-25,000 Unit/250 Ml) 25,000 unit in 250 mls @ 17.717 mls/hr IV TITR LUPE; Protocol Review of Systems ROS unobtainable: due to mental status Exam - Constitutional Vitals: Temp Pulse Resp BP Pulse Ox 98.0 F 95 H 16 130/70 96 03/01/22 16:18 03/01/22 16:18 03/01/22 16:18 03/01/22 16:18 03/01/22 16:18 General appearance: Present: mild distress, obese - EENT Eyes: Present: PERRL ENT: hearing intact, clear oral mucosa - Neck Neck: Present: supple, normal ROM - Respiratory Respiratory effort: normal Respiratory: bilateral: CTA - Cardiovascular Heart Sounds: Present: S1 & S2. Absent: rub, click - Extremities Extremities: pulses symmetrical Extremity abnormal: edema, pulses diminished, tenderness Peripheral Pulses: within normal limits - Abdominal General gastrointestinal: Present: soft, non-tender, non-distended, normal bowel sounds Male genitourinary: Present: normal - Integumentary Integumentary: Present: clear, warm, dry - Musculoskeletal Musculoskeletal: gait normal, strength equal bilaterally - Psychiatric Psychiatric: appropriate mood/affect, intact judgment & insight - Neurologic Neurologic: CNII-XII intact, moves all extremities Results - Labs CBC & Chem 7: 03/01/22 17:59 03/01/22 17:59 Labs: Abnormal lab results 03/01/22 03/01/22 Range/Units 17:59 17:59 Hgb 11.7 L (11.8-15.2) gm/dl MCV 82 L (84-94) fl MCH 27 L (28-32) pg RDW 15.4 H (13.2-15.2) % Lymph % (Auto) 11.5 L (13.4-35.0) % [place] % (Auto) 9.5 H (0.0-7.3) % Lymph # (Auto) 1.1 L (1.2-5.4) K/mm3 [place] # (Auto) 0.9 H (0.0-0.8) K/mm3 Seg Neutrophils % 75.6 H (40.0-70.0) % PT 16.6 H (12.2-14.9) Sec. INR 1.17 H (0.87-1.13) Assessment and Plan - Patient Problems (1) Acute deep vein thrombosis of left lower extremity Status: Acute Qualifiers: Plan to address problem: Vascular surgery team consulted, therapeutic anticoagulation, supportive care, pain control. Further care and evaluation as per vascular surgery team. (2) Left leg cellulitis Status: Acute Plan to address problem: Empiric IV antibiotic therapy x1 dose, CBC, supportive care. (3) Bipolar disorder Status: Chronic Plan to address problem: Continue medical management, supportive care. (4) Cerebral palsy Status: Chronic Plan to address problem: Continue medical management, supportive care. (5) DVT prophylaxis Status: Acute Plan to address problem: SCD to bilateral extremities on bed (6) Advance care planning Status: Acute Plan to address problem: Disease education done, care plan discussed, diagnoses discussed, prognosis discussed, patient is full code. Patient mother acknowledges understanding and agreement with care plan, +30 minutes.
== END | disposition home or self-care (01) ==
LOC: ED 16:06
DX: I82.402 Acute embolism and thrombosis of unspecified deep veins of left lower extremity (principal); F31.9 Bipolar disorder, unspecified; G80.9 Cerebral palsy, unspecified; L03.116 Cellulitis of left lower limb; Z88.0 Allergy status to penicillin
CPT/HCPCS: 36415; 80048; 85025; 85610; 85730; 96372; 99283; J1200; J1956; J3486